=== PATIENT | female | born 1985 | race Hispanic/Latino ===

== ENCOUNTER 2018-09-30 19:32 | Emergency (ER) | payer MEDICARE ==
[~2018-09-30] VITALS: Ht 162.6 cm; Wt 63.5 kg
--- OUTSIDE RECORDS SUMMARY | 2018-09-30 19:34 | XMS REPORT ---
Author Author [facility] Address Unknown Phone Unavailable Care Team Providers Care Cricket Coach Name Role Phone Unavailable Unavailable Payers Payer Name Policy Type Policy Number Effective Date Expiration Date Problems This patient has no known problems. Allergies, Adverse Reactions, Alerts Allergy Name Allergy Type Status Severity Reaction(s) Onset Date Inactive Date Treating Clinician Comments milk DA Active U 2011-10-30 00:00:00 Medications This patient has no known medications. Results Test Description Test Time Test Comments Text Results Atomic Results Result Comments - XR CHEST 2 V 2018-09-09 18:57:00 Name: RONALD GIL [facility] : 1985 Age/S:33 /F [address] [facility] Unit#:[id number] Loc: [place] [address] Phys: Yoandy Carvalho MD Dis Date: PHONE #: [phone] Status: REG ER FAX #: [phone] Exam Date: 09/09/2018 Reason: sob EXAMS: CPT CODE: [id number] XR CHEST 2 V 36280 REASON FOR EXAM: sob Exam Order Date: 09/09/2018 6:31 PM Ordering Lisa: Yoandy Carvalho MD PROCEDURE: - XR CHEST 2 V COMPARISON: FINDINGS: PA and lateral views of the chest show clear lungs without evidence of consolidation. No evidence of effusion. The heart size is within normal limits. Pulmonary vasculatures are unremarkable. The osseous structures are grossly intact. IMPRESSION: No active disease. at 1857 Reported and signed by: Kamran Lawton M.D. CC: Yoandy Carvalho MD Technologist: ZUHAIR MO, RT(R),CT Trnscrpt Data: 09/09/2018 ([id number]) [facility] Print D/T: S: 09/09/2018 (3424) PAGE 1 Signed Report
[2018-09-30] MEDS ORDERED: FAMOTIDINE 20 MG/2 ML VIAL IV ONE (20:06)
[2018-09-30] MEDS ORDERED: CLINDAMYCIN PHOS 900MG/ 50ML 50 ML IV ONE (20:06)
[2018-09-30] MEDS ORDERED: METHYLPREDNISOLONE SOD SUCC 125 MG/2ML VIAL IV ONE (20:15)
[2018-09-30] MEDS ORDERED: DIPHENHYDRAMINE HCL INJ 50 MG/ML VIAL IV ONE (20:15)
[2018-09-30 22:56] LABS: BASOPHILS % 0.2 % (0.0-1.0); EOSINOPHILS # (AUTO) 1.5 (0.0-0.4); EOSINOPHILS % 11.9 % (0.0-6.0); HEMATOCRIT 36.9 % (34.2-44.1); HEMOGLOBIN 11.4 g/dL (12.0-16.0); LYMPHOCYTES # (AUTO) 1.7 (1.0-3.2); MEAN CORPUSCULAR HEMOGLOBIN 22.8 pg (28-32); MEAN CORPUSCULAR HGB CONC 30.9 g/dL (31-35); MEAN CORPUSCULAR VOLUME 73.7 fL (81-99); MONOCYTES # (AUTO) 0.4 (0.2-0.8); MONOCYTES % 2.9 % (4.4-11.3); NEUTROPHILS # (AUTO) 9.1 (2.1-6.9); NEUTROPHILS % 71.8 % (38.7-80.0); PLATELET COUNT 539 x10e3/uL (140-360); RED BLOOD COUNT 5.01 x10e6/uL (3.6-5.1); RED CELL DISTRIBUTION WIDTH 17.9 % (11.7-14.4)
[2018-09-30 23:02] LABS: ALANINE AMINOTRANSFERASE 23 IU/L (0-55); ALBUMIN 3.4 g/dL (3.5-5.0); ALBUMIN/GLOBULIN RATIO 0.9 (0.8-2.0); ALKALINE PHOSPHATASE 120 IU/L (40-150); ANION GAP 9.8 mmol/L (8-16); BLOOD UREA NITROGEN 10 mg/dL (7-26); BUN/CREATININE RATIO 15 (6-25); CALCIUM 8.9 mg/dL (8.4-10.2); CARBON DIOXIDE 24 mmol/L (22-29); CHLORIDE 108 mmol/L (98-107); CREATININE, SERUM 0.65 mg/dL (0.57-1.11); EST GLOMERULAR FILTRATION RATE > 60 ML/MIN (60-); GLUCOSE 115 mg/dL (74-118); POTASSIUM 3.8 mmol/L (3.5-5.1); SODIUM 138 mmol/L (136-145)
[2018-09-30] MEDS ORDERED: CLINDAMYCIN HC300 MG PO (23:32)
[2018-09-30] MEDS ORDERED: HIBICLENS120 ML TOP (23:32)
[2018-09-30] MEDS ORDERED: PREDNISONE20 MG PO (23:33)
== END 2018-10-01 04:40 | disposition home or self-care (01) ==
LOC: ER 19:32
DX: L20.9 Atopic dermatitis, unspecified (principal); L50.0 Allergic urticaria
CPT/HCPCS: 36415; 80053; 85025; 99284; J1200; J2930